=== PATIENT | female | born 1945 | race Caucasian/White ===

== ENCOUNTER 2016-11-15 15:06 | Inpatient (IN) | payer MEDICARE, OTHER ==
[2016-11-15] MEDS ORDERED: TENORMIN25 M1 PO (15:16)
[2016-11-15] MEDS ORDERED: ONDANSETRON HCL8 M1 PO (15:17)
[2016-11-15] MEDS ORDERED: NORCO 5-325 TA1 EACH PO (15:17)
[2016-11-15 16:08] LABS: ALB/GLOB RATIO 1.2 (0.8-2.0); ALBUMIN 3.6 g/dl (3.5-5.0); ALKALINE PHOSPHATASE 80 U/L (33-138); ALT/SGPT 28 U/L (12-78); ANION GAP 10 mmol/L (0-20); AST/SGOT 17 U/L (10-40); BILIRUBIN,TOTAL 0.8 mg/dl (0-1.5); BLOOD UREA NITROGEN 43 mg/dl (6-24); CARBON DIOXIDE-VENOUS 37 mmol/L (22-32); CHLORIDE 96 mmol/l (96-110); CREATININE 2.88 mg/dl (0.50-1.10); GLUCOSE 111 mg/dL (70-110); MAGNESIUM 2.5 mg/dl (1.8-2.6); POTASSIUM 4.4 mmol/L (3.7-5.1); SODIUM 139 mmol/L (135-145); eGFR VALUE FOR BLACK 18 mL/Min
[2016-11-15 16:11] LABS: CALCIUM 14.3 mg/dl (8.5-10.5)
[2016-11-15] MEDS ORDERED: ASPIRIN EC81 MG PO (16:25)
[2016-11-15] MEDS ORDERED: RITUXAN100 MG/10 IV (16:26)
[2016-11-15 18:23] LABS: ALBUMIN 3.2 g/dl (3.5-5.0); ALKALINE PHOSPHATASE 71 U/L (33-138); ALT/SGPT 26 U/L (12-78); ANION GAP 11 mmol/L (0-20); AST/SGOT 15 U/L (10-40); BILIRUBIN,TOTAL 0.8 mg/dl (0-1.5); BLOOD UREA NITROGEN 43 mg/dl (6-24); CARBON DIOXIDE-VENOUS 35 mmol/L (22-32); CHLORIDE 99 mmol/l (96-110); CREATININE 2.81 mg/dl (0.50-1.10); GLUCOSE 110 mg/dL (70-110); POTASSIUM 3.8 mmol/L (3.7-5.1); SODIUM 141 mmol/L (135-145); eGFR VALUE FOR BLACK 19 mL/Min
[2016-11-15 18:26] LABS: CALCIUM 13.4 mg/dl (8.5-10.5)
[2016-11-15 20:32] LABS: URINE BILIRUBIN NEGATIVE (NEG); URINE BLOOD LARGE (NEG); URINE GLUCOSE (UA) NEGATIVE (NEG); URINE KETONE NEGATIVE (NEG); URINE LEUKOCYTE ESTERASE POSITIVE (NEG); URINE NITRITE NEGATIVE (NEG); URINE PROTEIN MODERATE (NEG)
[2016-11-15 20:33] LABS: URINE APPEARANCE HAZY; URINE COLOR YELLOW
[2016-11-15 20:42] LABS: URINE AMORPHOUS 1+
[2016-11-15 20:45] LABS: URINE TOTAL PROTEIN-RANDOM 27.3 mg/dl (<11.8)
[2016-11-16 05:27] LABS: BASO % 0.3 % (0-2); HCT-HEMATOCRIT 32.1 % (34.0-49.0); HGB-HEMOGLOBIN 10.5 gm/dl (12.0-15.5); IMMATURE GRANULOCYTES ABSOLUTE 0.01 tho/cmm (0-0.03); IMMATURE GRANULOCYTES PERCENT 0.3 % (0-0.3); LYMPH % 26.9 % (20-45); MCH (MEAN CORPUSCULAR HGB) 29.7 pg (28.0-32.0); MCHC MEAN CORPUSCULAR HGB CONC 32.7 % (32.0-36.0); MCV (MEAN CELL VOLUME) 90.7 fl (82.0-96.0); MEAN PLATELET VOLUME 11.5 cmc (9.4-12.4); MONO % 10.9 % (0-12); MONOCYTE ABSOLUTE COUNT 0.4 tho/cmm (0.0-1.2); NEUTROPHIL ABSOLUTE COUNT 2.3 tho/cmm (1.6-8.0); NEUTROPHIL-AUTOMATED 2.3 tho/cmm (1.6-8.0); NEUTROPHILS % 61.6 % (40-80); PLATELET COUNT 106 tho/cmm (150-450); RED BLOOD COUNT 3.54 mil/cmm (4.00-5.20); RED CELL DISTRIBUTION WIDTH 13.2 % (12.4-16.4); WHITE BLOOD COUNT 3.7 tho/cmm (4.0-10.0)
[2016-11-16 05:38] LABS: ALB/GLOB RATIO 1.1 (0.8-2.0); ALBUMIN 3.2 g/dl (3.5-5.0); ALKALINE PHOSPHATASE 75 U/L (33-138); ALT/SGPT 28 U/L (12-78); ANION GAP 12 mmol/L (0-20); AST/SGOT 9 U/L (10-40); BILIRUBIN,TOTAL 0.7 mg/dl (0-1.5); BLOOD UREA NITROGEN 43 mg/dl (6-24); CARBON DIOXIDE-VENOUS 32 mmol/L (22-32); CHLORIDE 104 mmol/l (96-110); CREATININE 2.66 mg/dl (0.50-1.10); GLUCOSE 122 mg/dL (70-110); MAGNESIUM 2.2 mg/dl (1.8-2.6); POTASSIUM 3.8 mmol/L (3.7-5.1); SODIUM 144 mmol/L (135-145); eGFR VALUE FOR BLACK 20 mL/Min
[2016-11-17 06:08] LABS: BASO % 0.4 % (0-2); EOS % 1.5 % (0-7); HCT-HEMATOCRIT 27.2 % (34.0-49.0); HGB-HEMOGLOBIN 8.8 gm/dl (12.0-15.5); LYMPH % 47.8 % (20-45); LYMPH ABSOLUTE COUNT 1.3 tho/cmm (0.8-4.5); MCH (MEAN CORPUSCULAR HGB) 29.9 pg (28.0-32.0); MCHC MEAN CORPUSCULAR HGB CONC 32.4 % (32.0-36.0); MCV (MEAN CELL VOLUME) 92.5 fl (82.0-96.0); MEAN PLATELET VOLUME 11.1 cmc (9.4-12.4); MONO % 11.9 % (0-12); MONOCYTE ABSOLUTE COUNT 0.3 tho/cmm (0.0-1.2); NEUTROPHILS % 38.4 % (40-80); PLATELET COUNT 81 tho/cmm (150-450); RED BLOOD COUNT 2.94 mil/cmm (4.00-5.20); RED CELL DISTRIBUTION WIDTH 13.5 % (12.4-16.4); WHITE BLOOD COUNT 2.7 tho/cmm (4.0-10.0)
[2016-11-17 06:14] LABS: ANION GAP 11 mmol/L (0-20); BLOOD UREA NITROGEN 29 mg/dl (6-24); CALCIUM 8.7 mg/dl (8.5-10.5); CARBON DIOXIDE-VENOUS 28 mmol/L (22-32); CHLORIDE 113 mmol/l (96-110); GLUCOSE 88 mg/dL (70-110); MAGNESIUM 1.6 mg/dl (1.8-2.6); POTASSIUM 3.4 mmol/L (3.7-5.1); SODIUM 149 mmol/L (135-145); eGFR VALUE FOR BLACK 29 mL/Min
[2016-11-17 06:37] LABS: CREATININE 1.96 mg/dl (0.50-1.10)
[2016-11-18 05:19] LABS: BASO % 0.8 % (0-2); EOS % 1.5 % (0-7); HCT-HEMATOCRIT 24.1 % (34.0-49.0); HGB-HEMOGLOBIN 7.9 gm/dl (12.0-15.5); LYMPH % 58.2 % (20-45); LYMPH ABSOLUTE COUNT 1.5 tho/cmm (0.8-4.5); MCH (MEAN CORPUSCULAR HGB) 30.2 pg (28.0-32.0); MCHC MEAN CORPUSCULAR HGB CONC 32.8 % (32.0-36.0); MEAN PLATELET VOLUME 11.4 cmc (9.4-12.4); MONO % 9.2 % (0-12); MONOCYTE ABSOLUTE COUNT 0.2 tho/cmm (0.0-1.2); NEUTROPHIL ABSOLUTE COUNT 0.8 tho/cmm (1.6-8.0); NEUTROPHIL-AUTOMATED 0.8 tho/cmm (1.6-8.0); NEUTROPHILS % 30.3 % (40-80); PLATELET COUNT 74 tho/cmm (150-450); RED BLOOD COUNT 2.62 mil/cmm (4.00-5.20); RED CELL DISTRIBUTION WIDTH 13.2 % (12.4-16.4); WHITE BLOOD COUNT 2.6 tho/cmm (4.0-10.0)
[2016-11-18 05:25] LABS: ALBUMIN 2.5 g/dl (3.5-5.0); ANION GAP 9 mmol/L (0-20); BLOOD UREA NITROGEN 20 mg/dl (6-24); CALCIUM 8.1 mg/dl (8.5-10.5); CARBON DIOXIDE-VENOUS 27 mmol/L (22-32); CHLORIDE 112 mmol/l (96-110); CREATININE 1.51 mg/dl (0.50-1.10); GLUCOSE 90 mg/dL (70-110); MAGNESIUM 2.1 mg/dl (1.8-2.6); PHOSPHOROUS 1.9 mg/dl (2.5-4.9); POTASSIUM 3.5 mmol/L (3.7-5.1); SODIUM 144 mmol/L (135-145); eGFR VALUE FOR BLACK 40 mL/Min
[2016-11-19 06:25] LABS: BASO % 0.4 % (0-2); EOS % 1.2 % (0-7); HCT-HEMATOCRIT 24.9 % (34.0-49.0); HGB-HEMOGLOBIN 8.3 gm/dl (12.0-15.5); LYMPH % 64.4 % (20-45); LYMPH ABSOLUTE COUNT 1.6 tho/cmm (0.8-4.5); MCH (MEAN CORPUSCULAR HGB) 30.2 pg (28.0-32.0); MCHC MEAN CORPUSCULAR HGB CONC 33.3 % (32.0-36.0); MCV (MEAN CELL VOLUME) 90.5 fl (82.0-96.0); MEAN PLATELET VOLUME 11.2 cmc (9.4-12.4); MONO % 8.5 % (0-12); MONOCYTE ABSOLUTE COUNT 0.2 tho/cmm (0.0-1.2); NEUTROPHIL ABSOLUTE COUNT 0.6 tho/cmm (1.6-8.0); NEUTROPHIL-AUTOMATED 0.6 tho/cmm (1.6-8.0); NEUTROPHILS % 25.5 % (40-80); PLATELET COUNT 82 tho/cmm (150-450); RED BLOOD COUNT 2.75 mil/cmm (4.00-5.20); RED CELL DISTRIBUTION WIDTH 13.1 % (12.4-16.4); WHITE BLOOD COUNT 2.5 tho/cmm (4.0-10.0)
[2016-11-19 06:34] LABS: ALBUMIN 2.6 g/dl (3.5-5.0); ANION GAP 11 mmol/L (0-20); BLOOD UREA NITROGEN 16 mg/dl (6-24); CARBON DIOXIDE-VENOUS 27 mmol/L (22-32); CHLORIDE 112 mmol/l (96-110); CREATININE 1.34 mg/dl (0.50-1.10); GLUCOSE 91 mg/dL (70-110); MAGNESIUM 1.8 mg/dl (1.8-2.6); PHOSPHOROUS 2.2 mg/dl (2.5-4.9); POTASSIUM 3.5 mmol/L (3.7-5.1); SODIUM 146 mmol/L (135-145); eGFR VALUE FOR BLACK 46 mL/Min
[2016-11-19] MEDS ORDERED: PAIN RELIEF325 M1 PO (15:39)
== END 2016-11-19 16:15 | DRG 682 ==
LOC: 5WF 15:06
PROVIDERS: Internal Medicine Hematology & Oncology; Internal Medicine Nephrology; Physician Assistant Medical; ADMIT Internal Medicine Hematology & Oncology
DX: N17.9 Acute kidney failure, unspecified (principal); D61.810 Antineoplastic chemotherapy induced pancytopenia; E87.3 Alkalosis; E87.0 Hyperosmolality and hypernatremia; C82.90 Follicular lymphoma, unspecified, unspecified site; E83.52 Hypercalcemia; E79.0 Hyperuricemia without signs of inflammatory arthritis and tophaceous disease; I10 Essential (primary) hypertension; R11.2 Nausea with vomiting, unspecified; R19.7 Diarrhea, unspecified; E87.6 Hypokalemia; Z79.82 Long term (current) use of aspirin; Z79.899 Other long term (current) drug therapy; T45.1X5A Adverse effect of antineoplastic and immunosuppressive drugs, initial encounter
CPT/HCPCS: J0630; J1100; J1644; J1940; J2405; J3475; J3489; J7030; J7050